=== PATIENT | male | born 1990 | race Caucasian/White ===

== ENCOUNTER 2023-04-22 16:27 | Inpatient (IN) | payer OTHER ==
[~2023-04-22] VITALS: Ht 182.9 cm; Wt 62.1 kg
[2023-04-22 17:26] LABS: DIFFERENTIAL COMMENT 0; MEAN CORPUSCULAR HGB CONC 34 g/dL (32.5-36.3)
[2023-04-22 17:31] LABS: BASOPHILS # (AUTO) 0.1 K/UL (0.0-0.2); BASOPHILS % (AUTO) 0.8 % (0.0-2.0); EOSINOPHILS # (AUTO) 0.1 K/uL (0.0-0.7); EOSINOPHILS % (AUTO) 0.7 % (0.0-7.0); HEMATOCRIT 28.9 % (36.7-47.1); HEMOGLOBIN 9.8 g/dL (12.5-16.3); LYMPHOCYTES # (AUTO) 1.8 K/uL (0.8-4.8); MEAN CORPUSCULAR HEMOGLOBIN 31.6 uug (23.8-33.4); MONOCYTES # (AUTO) 0.5 K/uL (0.1-1.30); MONOCYTES % (AUTO) 6.7 % (0.0-11.0); NEUTROPHILS % (AUTO) 67.8 % (38.5-71.5); PLATELET COUNT (AUTO) 255 K/uL (152-348); RED CELL DISTRIBUTION WIDTH 13.4 % (12.1-16.2); WHITE BLOOD COUNT (AUTO) 7.3 K/uL (3.6-10.2)
[2023-04-22 17:36] LABS: CALCIUM 8.7 mg/dL (8.5-10.1); CARBON DIOXIDE 30 mmol/L (21-32); CHLORIDE 103 mmol/L (98-107); CREATININE 0.7 mg/dL (0.6-1.3); GLUCOSE 109 mg/dL (74-106); POTASSIUM 3.6 mmol/L (3.5-5.1); SODIUM SERUM 139 mmol/L (136-145); UREA NITROGEN, BLOOD 8 mg/dL (7-18)
[2023-04-22 17:45] LABS: ALANINE AMINOTRANSFERASE 13 U/L (16-63); ALBUMIN 3.6 g/dL (3.4-5.0); ALKALINE PHOSPHATASE 52 U/L (50-136); ASPARTATE AMINOTRANSFERASE 12 U/L (15-37); BILIRUBIN,DIRECT 0.1 mg/dL (0.0-0.2); BILIRUBIN,TOTAL 0.3 mg/dL (0.2-1.0); LIPASE 24 U/L (16-77); TOTAL PROTEIN, SERUM 6.4 g/dL (6.4-8.2)
[2023-04-22] MEDS ORDERED: IV NORMAL SALINE 1000 ML BAG IV ONE (18:45)
[2023-04-22] MEDS ORDERED: TRANEXAMIC ACID 1,000 MG/10 ML VIAL IV ONE (19:15)
[2023-04-22 20:01] LABS: HEMATOCRIT 23.5 % (36.7-47.1); HEMOGLOBIN 7.9 g/dL (12.5-16.3)
[2023-04-22] MEDS ORDERED: TRANEXAMIC ACID 1,000 MG/10 ML VIAL ONE (21:20)
[2023-04-22] MEDS ORDERED: MAGNESIUM HYDROXIDE 30 ML LIQUID UDC PO PRN (22:00)
[2023-04-22] MEDS ORDERED: ONDANSETRON 4 MG/2 ML VIAL IV PRN (22:00)
[2023-04-22] MEDS ORDERED: REMEDY ESSENTIAL ZINC PASTE 113 GM TP PRN (22:00)
[2023-04-23] MEDS: IV NS 1000 ML 1,000 ML IV PRN (03:00)
[2023-04-23] MEDS: ACETAMINOPHEN 325 MG TABLET PO PRN ×2 (04:42→13:46)
[2023-04-23] MEDS ORDERED: FENTANYL CITRATE 250 MCG/5 ML AMPUL ONE (07:11)
[2023-04-23] MEDS ORDERED: MIDAZOLAM HCL 2 MG/2 ML VIAL ONE (07:11)
[2023-04-23] MEDS ORDERED: FAMOTIDINE. 20 MG/2 ML VIAL IV ONE (07:12)
[2023-04-23] MEDS ORDERED: SUCCINYLCHOLINE CHLORIDE 200 MG/10 ML VIAL ONE (07:12)
[2023-04-23] MEDS ORDERED: THROMBIN (BOVINE) 5,000 UNITS VIAL ONE (07:48)
[2023-04-23 08:12] LABS: BASOPHILS # (AUTO) 0.1 K/UL (0.0-0.2); BASOPHILS % (AUTO) 1.1 % (0.0-2.0); EOSINOPHILS # (AUTO) 0.1 K/uL (0.0-0.7); EOSINOPHILS % (AUTO) 2.2 % (0.0-7.0); HEMATOCRIT 23.4 % (36.7-47.1); HEMOGLOBIN 7.8 g/dL (12.5-16.3); LYMPHOCYTES # (AUTO) 1.7 K/uL (0.8-4.8); LYMPHOCYTES % (AUTO) 37.2 % (20.5-51.5); MEAN CORPUSCULAR HEMOGLOBIN 29.5 uug (23.8-33.4); MEAN CORPUSCULAR HGB CONC 33 g/dL (32.5-36.3); MEAN CORPUSCULAR VOLUME 88.6 fL (73.0-96.2); MONOCYTES # (AUTO) 0.4 K/uL (0.1-1.30); MONOCYTES % (AUTO) 8.5 % (0.0-11.0); NEUTROPHILS # (AUTO) 2.3 K/uL (1.8-8.9); PLATELET COUNT (AUTO) 190 K/uL (152-348); RED BLOOD CELL COUNT(AUTO) 2.64 MIL/uL (4.06-5.63); RED CELL DISTRIBUTION WIDTH 16.4 % (12.1-16.2); WHITE BLOOD COUNT (AUTO) 4.6 K/uL (3.6-10.2)
[2023-04-23 08:27] LABS: DIFFERENTIAL COMMENT 1
[2023-04-23 08:42] LABS: CALCIUM 8.3 mg/dL (8.5-10.1); CARBON DIOXIDE 29 mmol/L (21-32); CHLORIDE 108 mmol/L (98-107); CREATININE 0.7 mg/dL (0.6-1.3); GLUCOSE 97 mg/dL (74-106); PHOSPHOROUS 2.7 mg/dL (2.5-4.9); SODIUM SERUM 141 mmol/L (136-145); UREA NITROGEN, BLOOD 8 mg/dL (7-18)
[2023-04-23] MEDS ORDERED: BUPIVACAINE PF 0.5% 30 ML VIAL ONE (09:12)
[2023-04-23] MEDS ORDERED: [UNRECOGNIZED DRUG - OTHER] MC ONE (09:12)
[2023-04-23] MEDS ORDERED: EPINEPHRINE-PF 1:1000 1 MG/ML AMPUL/VIAL ONE (09:12)
[2023-04-23] MEDS ORDERED: BUPIVACAINE 0.25% 30 ML VIAL ONE (09:15)
[2023-04-23] MEDS ORDERED: PIPERACILLIN SODIUM/TAZOBACTAM 3.375 G in IV DEXTROSE 5% 50 ML IV SCH (10:15)
[2023-04-23 11:03] LABS: IRON, SERUM 155 ug/dL (50-175)
[2023-04-23] MEDS: PIPERACILLIN SODIUM/TAZOBACTAM 3.375 G in IV DEXTROSE 5% 100 ML IV SCH ×3 (11:56→22:03)
[2023-04-23 12:00] VITALS: BP 121/65; TEMP 98; O2SAT 100
[2023-04-23] MEDS: DOCUSATE SODIUM 100 MG CAPSULE PO SCH (14:50)
[2023-04-23] MEDS: MORPHINE SULFATE 2 MG/1 ML DISP.SYRIN IV PRN ×3 (14:51→22:46)
[2023-04-23] MEDS ORDERED: KETOROLAC TROMETHAMINE 30 MG INJ IVP ONE ×2 (15:30→16:45)
[2023-04-23] MEDS ORDERED: HYDROCODONE/APAP 5-325MG TABLET PO PRN (15:30)
[2023-04-23 16:00] VITALS: BP 119/80; TEMP 99; O2SAT 100
[2023-04-23] MEDS: PROTEIN SUPPLEMENT (PROSTAT) 30 ML LIQUID PO SCH (17:17)
[2023-04-23 20:35] VITALS: BP 105/56; TEMP 98.3; O2SAT 100
[2023-04-24] VITALS (9 sets, daily range): BP systolic 94–117; BP diastolic 51–66; TEMP 95.5–99; O2SAT 97–98
[2023-04-24] MEDS: MORPHINE SULFATE 2 MG/1 ML DISP.SYRIN IV PRN ×6 (01:46→22:45)
[2023-04-24] MEDS: ACETAMINOPHEN 325 MG TABLET PO PRN ×2 (01:51→14:37)
[2023-04-24] MEDS: PIPERACILLIN SODIUM/TAZOBACTAM 3.375 G in IV DEXTROSE 5% 100 ML IV SCH ×3 (05:50→22:46)
[2023-04-24] MEDS ORDERED: LIDOCAINE-MPF 2% 5 ML VIAL ONE (09:41)
[2023-04-24] MEDS: DOCUSATE SODIUM 100 MG CAPSULE PO SCH (09:41)
[2023-04-24] MEDS ORDERED: METOCLOPRAMIDE HCL 10 MG/2 ML VIAL ONE (09:41)
[2023-04-24] MEDS ORDERED: CEFAZOLIN 1 G VIAL ONE (09:41)
[2023-04-24] MEDS ORDERED: PROPOFOL 200 MG/20 ML BOTTLE ONE (09:41)
[2023-04-24] MEDS ORDERED: SUCCINYLCHOLINE CHLORIDE 200 MG/10 ML VIAL ONE (09:41)
[2023-04-24] MEDS ORDERED: ONDANSETRON 4 MG/2 ML VIAL ONE (09:41)
[2023-04-24 10:04] LABS: BASOPHILS % (AUTO) 1.1 % (0.0-2.0); EOSINOPHILS # (AUTO) 0.2 K/uL (0.0-0.7); EOSINOPHILS % (AUTO) 4.4 % (0.0-7.0); LYMPHOCYTES # (AUTO) 1.3 K/uL (0.8-4.8); LYMPHOCYTES % (AUTO) 31.7 % (20.5-51.5); MEAN CORPUSCULAR HEMOGLOBIN 30.5 uug (23.8-33.4); MEAN CORPUSCULAR HGB CONC 34 g/dL (32.5-36.3); MEAN CORPUSCULAR VOLUME 88.9 fL (73.0-96.2); MONOCYTES # (AUTO) 0.4 K/uL (0.1-1.30); MONOCYTES % (AUTO) 9.4 % (0.0-11.0); NEUTROPHILS # (AUTO) 2.1 K/uL (1.8-8.9); NEUTROPHILS % (AUTO) 53.4 % (38.5-71.5); PLATELET COUNT (AUTO) 183 K/uL (152-348)
[2023-04-24 10:16] LABS: DIFFERENTIAL COMMENT 1; HEMATOCRIT 20.7 % (36.7-47.1); HEMOGLOBIN 7.1 g/dL (12.5-16.3); RED BLOOD CELL COUNT(AUTO) 2.33 MIL/uL (4.06-5.63)
[2023-04-24] MEDS ORDERED: SENNOSIDES 1 TABLET PO ONE (11:15)
[2023-04-24] MEDS: PROTEIN SUPPLEMENT (PROSTAT) 30 ML LIQUID PO SCH ×3 (11:35→17:33)
[2023-04-24] MEDS ORDERED: KETOROLAC TROMETHAMINE 15 MG INJ IVP PRN (11:45)
[2023-04-24] MEDS: IV NS 1000 ML 1,000 ML IV PRN (22:41)
[2023-04-25 00:36] VITALS: BP 107/59; TEMP 98.5; O2SAT 98
[2023-04-25] MEDS: MORPHINE SULFATE 2 MG/1 ML DISP.SYRIN IV PRN ×3 (02:36→09:46)
[2023-04-25] MEDS: PIPERACILLIN SODIUM/TAZOBACTAM 3.375 G in IV DEXTROSE 5% 100 ML IV SCH (05:14)
[2023-04-25 05:32] VITALS: BP 90/50; TEMP 98; O2SAT 97
[2023-04-25 08:00] VITALS: BP 97/53; TEMP 97.2; O2SAT 98
[2023-04-25] MEDS: DOCUSATE SODIUM 100 MG CAPSULE PO SCH (08:39)
[2023-04-25] MEDS: PROTEIN SUPPLEMENT (PROSTAT) 30 ML LIQUID PO SCH ×2 (08:39→12:19)
[2023-04-25] MEDS ORDERED: DOCU-141 PO (10:05)
[2023-04-25] MEDS ORDERED: POLY17PO4 PO (10:05)
== END 2023-04-25 12:30 | disposition home or self-care (01) | DRG 810 ==
LOC: ER 16:29 → TELE3 19:20 → MEDSURG3 04-24 11:45
PROVIDERS: ADMIT Nurse Practitioner Acute Care; ATTEND Internal Medicine
PROC: 30233N1 Transfusion of Nonautologous Red Blood Cells into Peripheral Vein, Percutaneous Approach (ICD-10-PCS; principal; 2023-04-22)
PROC: 0W3P8ZZ Control Bleeding in Gastrointestinal Tract, Via Natural or Artificial Opening Endoscopic (ICD-10-PCS; 2023-04-23)
DX: K91.841 Postprocedural hemorrhage of a digestive system organ or structure following other procedure (principal); R57.1 Hypovolemic shock; D62 Acute posthemorrhagic anemia; K62.5 Hemorrhage of anus and rectum; Z80.0 Family history of malignant neoplasm of digestive organs; K64.9 Unspecified hemorrhoids; K59.00 Constipation, unspecified; R91.1 Solitary pulmonary nodule; R00.0 Tachycardia, unspecified; Z87.891 Personal history of nicotine dependence; K62.89 Other specified diseases of anus and rectum; K52.9 Noninfective gastroenteritis and colitis, unspecified
CPT/HCPCS: 36415; 71045; 71250; 83550; 83690; 83735; 84100; 84484; 85018; 85025; 85730; 86850; 86900; 86901; 86920; 93005; 93307; A4649; G0378; J0171; J0330; J0690; J1885; J2250; J2270; J2405; J2543; J2765; J3010; J3490; J7040; P9016